=== PATIENT | male | born 1975 | race Caucasian/White ===

== ENCOUNTER 2024-02-24 12:00 | Emergency (ER) | payer OTHER ==
[~2024-02-24] VITALS: Ht 180.3 cm; Wt 128.1 kg
[2024-02-24 12:00] VITALS: TEMP 98.7
[2024-02-24] MEDS ORDERED: LOSARTAN POTASS50 MG PO ×2 (12:36→14:54)
[2024-02-24] MEDS ORDERED: FUROSEMIDE40 MG PO ×2 (12:36→14:54)
[2024-02-24] MEDS ORDERED: KLOR-CON M1010 MEQ PO ×2 (12:36→14:55)
[2024-02-24] MEDS ORDERED: CARVEDILOL12.5 MG PO ×2 (12:36→14:54)
[2024-02-24 13:24] LABS: BASOPHILS # (AUTO) 0.1 (0.0-0.1); BASOPHILS % 0.6 % (0.0-1.0); EOSINOPHILS # (AUTO) 0.8 (0.0-0.4); EOSINOPHILS % 8.3 % (0.0-6.0); HEMATOCRIT 44.5 % (38.2-49.6); HEMOGLOBIN 14.9 g/dL (14.0-18.0); LYMPHOCYTES # (AUTO) 2.2 (1.0-3.2); LYMPHOCYTES % 23.5 % (18.0-39.1); MEAN CORPUSCULAR HEMOGLOBIN 31.3 pg (28-32); MEAN CORPUSCULAR HGB CONC 33.5 g/dL (31-35); MEAN CORPUSCULAR VOLUME 93.5 fL (81-99); MONOCYTES # (AUTO) 0.8 (0.2-0.8); MONOCYTES % 8.1 % (4.4-11.3); NEUTROPHILS # (AUTO) 5.6 (2.1-6.9); PLATELET COUNT 313 x10e3/uL (140-360); RED BLOOD COUNT 4.76 x10e6/uL (4.3-5.7); RED CELL DISTRIBUTION WIDTH 12.4 % (11.7-14.4); WHITE BLOOD COUNT 9.48 x10e3/uL (4.8-10.8)
[2024-02-24] MEDS: FUROSEMIDE INJ 10 MG/ML 4 ML VIAL IV ONE (13:40)
[2024-02-24 13:41] LABS: ALBUMIN 3.8 g/dL (3.5-5.0); ALBUMIN/GLOBULIN RATIO 1.1 (0.8-2.0); ANION GAP 15.9 mmol/L (8-16); BILIRUBIN,TOTAL 0.5 mg/dL (0.2-1.2); CALCIUM 9.1 mg/dL (8.4-10.2); CREATININE, SERUM 1.15 mg/dL (0.72-1.25); POTASSIUM 3.9 mmol/L (3.5-5.1); TOTAL PROTEIN 7.2 g/dL (6.5-8.1)
[2024-02-24 13:47] LABS: TROPONIN I 0.037 ng/mL (0-0.300)
[2024-02-24 14:50] VITALS: PULSE 85; RESP 14
[2024-02-24 16:44] VITALS: BP 164/109; PULSE 85; RESP 14; TEMP 98.7; O2SAT 96
== END 2024-02-24 16:39 | disposition home or self-care (01) ==
LOC: ER 12:06
DX: R06.02 Shortness of breath (principal); I50.9 Heart failure, unspecified; M79.89 Other specified soft tissue disorders; R94.31 Abnormal electrocardiogram [ECG] [EKG]; F17.210 Nicotine dependence, cigarettes, uncomplicated
CPT/HCPCS: 36415; 71045; 80053; 83880; 84484; 85025; 93005; 99284; J1940